=== PATIENT | male | born 1970 | race Caucasian/White ===

== ENCOUNTER 2017-12-13 06:14 | Outpatient (CLI) | payer OTHER ==
[~2017-12-13 06:14] MED LIST: ANTIVERT25 M1 PO; [UNRECOGNIZED DRUG - REMARK]
== END 2017-12-13 06:58 | disposition home or self-care (01) ==
LOC: LAB 06:14
DX: E78.4 Other hyperlipidemia (principal); R07.89 Other chest pain

== ENCOUNTER 2017-12-18 08:49 | Outpatient (CLI) | payer OTHER | END 2017-12-18 08:53 | disposition home or self-care (01) | LOC: RAD 08:49 | DX: M17.0 Bilateral primary osteoarthritis of knee (principal) ==

== ENCOUNTER 2018-02-17 10:22 | Outpatient (CLI) | payer OTHER ==
[2018-02-21] MEDS ORDERED: NORFLEX PO (09:35)
[2018-02-21] MEDS ORDERED: TORADOL60 MG IM (09:36)
[2018-02-21] MEDS ORDERED: ASA81 MG PO (09:36)
[2018-02-21] MEDS ORDERED: NITROSTAT0.4 MG SL (09:36)
[2018-02-21] MEDS ORDERED: RELAFEN PO (09:36)
== END 2018-02-17 10:29 | disposition home or self-care (01) ==
LOC: NUCLEAR 10:22
DX: R94.31 Abnormal electrocardiogram [ECG] [EKG] (principal)

== ENCOUNTER 2018-02-28 06:14 | Day surgery (SDC) | payer OTHER ==
[~2018-02-28 06:14] MED LIST changes: +ASA81 MG PO; +NITROSTAT0.4 MG SL; +NORFLEX PO; +RELAFEN PO; +TORADOL60 MG IM
[2018-02-28] MEDS ORDERED: DUI500 PO (08:52)
[2018-02-28] MEDS ORDERED: TRAM1TAB98 PO (08:52)
== END 2018-02-28 16:40 | disposition home or self-care (01) ==
LOC: CIR.AMB 06:14
DX: M23.321 Other meniscus derangements, posterior horn of medial meniscus, right knee (principal); M17.11 Unilateral primary osteoarthritis, right knee; M65.861 Other synovitis and tenosynovitis, right lower leg

== ENCOUNTER 2018-03-28 07:28 | Outpatient (CLI) | payer OTHER ==
[~2018-03-28 07:28] MED LIST changes: +DUI500 PO; +TRAM1TAB98 PO
== END 2018-03-28 07:48 | disposition home or self-care (01) ==
LOC: RX STUDY 07:28
DX: R13.19 Other dysphagia (principal)

== ENCOUNTER 2020-11-11 08:52 | Outpatient (CLI) | payer OTHER | END 2020-11-11 09:02 | disposition home or self-care (01) | LOC: RX STUDY 08:52 | PROVIDERS: ATTEND Internal Medicine Gastroenterology | DX: R13.19 Other dysphagia (principal) ==

== ENCOUNTER 2020-11-18 08:00 | Outpatient (CLI) | payer OTHER | END 2020-11-18 08:30 | disposition home or self-care (01) | LOC: PPH VACUNA 08:00 | DX: Z23 Encounter for immunization (principal) ==